=== PATIENT | male | born 1950 | race Caucasian/White ===

== ENCOUNTER 2017-07-22 15:07 | Emergency (ER) | payer OTHER ==
[~2017-07-22] VITALS: Ht 170.2 cm; Wt 58.5 kg
[~2017-07-22 15:07] MED LIST: ALBU1.25 NEB; AMBI10TA PO; AMOX500T2 PO; AUGM875 PO; CLON.1 PO; COMBAER INH; DEME150T2 PO; DIGO50SO PO; DILT300C PO; DILT31TA PO; DYAZ37.52 PO; FERR324T4 PO; HYDR200T42 PO; LORA-474 PO; PRED10 PO; PRIN20TA2 PO; PROT40TA PO
[2017-07-22 15:13] VITALS: BP 174/90; PULSE 118; RESP 18; TEMP 98.4; O2SAT 97
[2017-07-22 15:23] VITALS: BP 179/90; PULSE 118; RESP 18; TEMP 98.4; O2SAT 97
[2017-07-22] MEDS ORDERED: AMLO5TAB2 PO (15:31)
[2017-07-22] MEDS ORDERED: MIRTA15 PO (15:31)
[2017-07-22] MEDS ORDERED: ACETAMINOPHEN/HYDROcodone 325 MG/5 MG TAB PO ONE (15:45)
--- NOTE | 2017-07-22 15:55 | PD ---
HPI Chief Complaint: Fall Time Seen by Provider: 15:30 Travel History International Travel<30 days: No Contact w/Intl Traveler<30days: No Traveled to known affect area: No History of Present Illness HPI 67-year-old male presents to the emergency department via EMS for evaluation of the left shoulder injury that occurred last night. He states he tripped and fell and caught himself with his left arm. The patient denies any head injury or LOC. Denies any neck pain or back pain. No chest pain or abdominal pain. No vomiting. No hip or pelvic pain. Patient states the pain is 10/10 in the left arm, aching and throbbing, without radiation. Movement exacerbates the pain. No alleviating factors. He denies being on anticoagulants. Moderate severity. PFSH Past Medical History Arthritis: No Asthma: No Autoimmune Disease: Yes (LUPUS) Blood Disorders: Yes (ANEMIA) Anxiety: No Depression: No Heart Rhythm Problems: No Cancer: No Cardiovascular Problems: No High Cholesterol: No Chemotherapy: No Chest Pain: No Congestive Heart Failure: No COPD: Yes Cerebrovascular Accident: No Diminished Hearing: No Endocrine: No GERD: Yes Glaucoma: No Genitourinary: No Hiatal Hernia: No Hypertension: Yes Kidney Stones: No Musculoskeletal: No Neurologic: No Psychiatric: No Reproductive: No Respiratory: Yes (PNEUMONIA) Migraines: No Myocardial Infarction: No Pneumonia: Yes Radiation Therapy: No Renal Failure: No Seizures: No Sickle Cell Disease: No Sleep Apnea: No Thyroid Disease: No Ulcer: No Tetanus Vaccination: < 5 Years Influenza Vaccination: Yes Past Surgical History Abdominal Surgery: No AICD: No Appendectomy: No Arteriovenous Shunt: No Cardiac Surgery: No Cholecystectomy: No Ear Surgery: No Endocrine Surgery: No Eye Surgery: No Genitourinary Surgery: No Gynecologic Surgery: No Insulin Pump: No Joint Replacement: No Oral Surgery: No Pacemaker: No Thoracic Surgery: No Social History Alcohol Use: Yes ("couple of beers daily") Tobacco Use: Yes (1ppd) Substance Use: No Allergies-Medications (Allergen,Severity, Reaction): Coded Allergies: No Known Allergies (Verified , 11/21/07) Reported Meds & Prescriptions Reported Meds & Active Scripts Active Reported Mirtazapine 15 Mg Tab 15 Mg PO HS Amlodipine (Amlodipine Besylate) 5 Mg Tab 5 Mg PO DAILY Review of Systems Except as stated in HPI: all other systems reviewed are Neg Physical Exam Narrative GENERAL: Well-nourished, well-developed male patient, afebrile. SKIN: Focused skin assessment warm/dry. HEAD: Normocephalic. Atraumatic. ENT: Mucosa pink and moist. No erythema or exudates. No uvular edema. No uvular , palatal, or tonsillar deviation. Airway patent. Nasal turbinates appear normal without nasal blood, purulent drainage or septal hematoma. Bilateral tympanic membranes clear without erythema or perforation. EYES: No scleral icterus. No injection or drainage. NECK: Supple, trachea midline. No JVD or lymphadenopathy. CARDIOVASCULAR: Regular rhythm without murmurs, gallops, or rubs. Left radial pulse is 2+. Patient is tachycardic, most likely due to pain. RESPIRATORY: Breath sounds equal bilaterally. No accessory muscle use. Lung sounds are clear to auscultation. GASTROINTESTINAL: Abdomen soft, non-tender, nondistended. MUSCULOSKELETAL: No cyanosis, or edema. Patient has pain over left shoulder. He cannot move the shoulder due to pain. He has normal grasp strength in the left hand. He has full sensation distal left upper extremity. BACK: Nontender without obvious deformity. No CVA tenderness. Data Data Last Documented VS Vital Signs Date Time Temp Pulse Resp B/P (MAP) Pulse Ox O2 Delivery O2 Flow Rate FiO2 07/22/17 15:23 98.4 118 18 179/90 (119) 97 07/22/17 15:13 Room Air Orders Orders Shoulder, Limited(2vws) (07/22/17 ) Humerus (Min 2vws) (07/22/17 ) Acetamin-Hydrocod 325-5 Mg (Debary 5-325 (07/22/17 15:45) Sling And Swathe (07/22/17 ) MDM Medical Decision Making Medical Screen Exam Complete: Yes Emergency Medical Condition: Yes Medical Record Reviewed: Yes Interpretation(s) Last Impressions Shoulder X-Ray 07/22/17 0000 Signed Impressions: CONCLUSION: Displaced proximal left humeral fracture Humerus X-Ray 07/22/17 0000 Signed Impressions: CONCLUSION: Displaced comminuted fracture through the proximal left humerus. Differential Diagnosis Fracture versus dislocation versus contusion Narrative Course 67-year-old male presents to the emergency department for evaluation of left shoulder pain after he tripped and fell last night. Patient appears to be in a significant amount of pain. Patient is given Debary 5/325 mg for pain. X-ray left shoulder, left humerus are ordered and pending. He denies any other injury. X-ray of the left shoulder shows a displaced proximal humeral fracture. X-ray of the left humerus shows a displaced proximal humeral fracture I discussed the imaging with our orthopedic surgeon on-call, Dr. Gordon. She states the patient can be placed in a sling and follow-up outpatient for surgery. Patient will be discharged with a prescription for Debary for pain. He is to ice , wear sling, follow-up with orthopedist. [employer] was queried and patient has not had any narcotic prescriptions in the past year. Diagnosis Primary Impression: Closed fracture of left proximal humerus Qualified Codes: S42.292A - Other displaced fracture of upper end of left humerus, initial encounter for closed fracture Referrals: Marsha Gordon MD 3 days Patient Instructions: Arm Fracture in Adults (ED), General Instructions, Narcotic given in the ED Additional Instructions: Wear sling. Ice for 20 minutes 4-5 times daily Take Debary as directed as needed for pain. Cautioned this can make you drowsy so do not drive after taking Follow-up with orthopedic surgeon, Dr. Gordon Return to the emergency department for any acute worsening of symptoms Med/Other Pt SpecificInfo: Prescription(s) given Scripts Hydrocodone-Acetaminophen (Debary) 5 Mg-325 Mg Tab 1 TAB PO Q6H Y for PAIN, #12 TAB 0 Refills Prov: Eri Nava 07/22/17 Disposition: 01 DISCHARGE HOME Condition: Stable Eri Nava July 22, 2017 15:55
--- NOTE | 2017-07-22 16:17 | RADRPT ---
EXAM DATE: 07/22/2017 4:09 PM EDT AGE/SEX: 67 years / Male INDICATIONS: Fell last night on left shoulder, has pain limited ROM CLINICAL DATA: This is the patient's initial encounter. Patient reports that signs and symptoms have been present for 2 days and indicates a pain score of 10/10. MEDICAL/SURGICAL HISTORY: Hypertension. None. COMPARISON: No prior [facility] exams available for comparison. FINDINGS: A displaced fracture is identified through the proximal left humerus just below the surgical neck. Sm all comminuted fragments are noted. There is anterior displacement of the humeral shaft in relation t o the humeral head. Humeral head remains well-seated within the glenoid fossa. CONCLUSION: Displaced proximal left humeral fracture Electronically signed by: Lazaro Martinez MD 07/22/2017 4:16 PM EDT
--- NOTE | 2017-07-22 16:18 | RADRPT ---
EXAM DATE: 07/22/2017 4:13 PM EDT AGE/SEX: 67 years / Male INDICATIONS: Fell last night on left arm, shoulder CLINICAL DATA: This is the patient's initial encounter. Patient reports that signs and symptoms have been present for 2 days and indicates a pain score of 10/10. MEDICAL/SURGICAL HISTORY: Hypertension. None. COMPARISON: No prior [facility] exams available for comparison. FINDINGS: A displaced comminuted fracture is identified in the proximal left humerus. The fracture extends from the surgical neck into the humeral shaft. There is anterior displacement of the humeral shaft in rel ation to the humeral head. Humeral head remains well-seated within the glenoid fossa. Elbow joint is intact. CONCLUSION: Displaced comminuted fracture through the proximal left humerus. Electronically signed by: Lazaro Martinez MD 07/22/2017 4:17 PM EDT
[2017-07-22] MEDS ORDERED: NORC5TAB PO (16:40)
== END 2017-07-22 16:59 | disposition home or self-care (01) ==
LOC: PHEFT 15:07
DX: S42.202A Unspecified fracture of upper end of left humerus, initial encounter for closed fracture (principal); W01.0XXA Fall on same level from slipping, tripping and stumbling without subsequent striking against object, initial encounter; I10 Essential (primary) hypertension; J44.9 Chronic obstructive pulmonary disease, unspecified; M32.9 Systemic lupus erythematosus, unspecified; K21.9 Gastro-esophageal reflux disease without esophagitis; F17.200 Nicotine dependence, unspecified, uncomplicated
CPT/HCPCS: 73030; 73060; 99283